=== PATIENT | female | born 2000 | race Caucasian/White ===

== ENCOUNTER 2023-01-23 17:53 | Outpatient (CLI) | payer OTHER, SELFPAY | END 2023-01-23 17:54 | disposition home or self-care (01) | PROVIDERS: Visit Provider Student in an Organized Health Care Education/Training Program | DX: R30.0 Dysuria (principal); N39.0 Urinary tract infection, site not specified | CPT/HCPCS: 87086; 87186 ==

== ENCOUNTER 2023-03-16 15:15 | Outpatient (CLI) | payer OTHER, SELFPAY ==
[2023-03-16 20:11] LABS: Chlamydia DNA Amplified* NOT DETECTED (No Detected); GC DNA Amplified* NOT DETECTED (No Detected)
== END 2023-03-16 15:16 | disposition home or self-care (01) ==
PROVIDERS: PCP Student in an Organized Health Care Education/Training Program; Visit Provider Obstetrics & Gynecology
DX: Z01.419 Encounter for gynecological examination (general) (routine) without abnormal findings (principal); E66.9 Obesity, unspecified; F41.1 Generalized anxiety disorder; N92.0 Excessive and frequent menstruation with regular cycle; E28.2 Polycystic ovarian syndrome
CPT/HCPCS: 0353U; 80061; 82627; 83498; 84270; 84402; 84403; 84443; 87491; 87591

== ENCOUNTER 2024-01-06 11:39 | Outpatient (CLI) | payer OTHER, SELFPAY | END 2024-01-06 11:40 | disposition home or self-care (01) | LOC: NFLDREF 01-08 07:36 | PROVIDERS: Visit Provider Physician Assistant | DX: R30.0 Dysuria (principal); N39.0 Urinary tract infection, site not specified | CPT/HCPCS: 87086; 87186 ==

== ENCOUNTER 2024-06-25 20:18 | Emergency (ER) | payer OTHER, SELFPAY ==
[2024-06-25 20:25] VITALS: BP 142/82; PULSE 89; RESP 20; TEMP 36.5; O2SAT 96; BMI 30.7
--- NOTE | 2024-06-25 20:36 | ED_ITS ---
HPI - Allergic Reaction General Time Seen by Provider: 20:36 Date Seen: 06/25/24 Chief complaint: Allergic Reaction Stated complaint: Hives Time Seen by Provider: 06/25/24 20:36 Source: patient, family, RN notes reviewed and old records reviewed Mode of arrival: ambulatory Limitations: no limitations History of Present Illness HPI narrative: Patient is a very pleasant 23-year-old female denies possibility of with no past history of allergies who comes to the emergency room with onset of hives on her leg abdomen neck approximately 1 hour ago. She has not had any new soaps foods and this has not happened to her in the past. The only thing that is different is that she did have a spray able essential oil that she applied to the recliner earlier today. Otherwise, she has not been swimming, use different soaps or lotions and she does not have a history of any food allergies. Patient denies difficulty with respirations or breathing has not had a cough, some stomachache or nausea. She notes that she feels a little bit of a tickle in her throat but denies tongue swelling lip swelling. She has otherwise been healthy with no recent illnesses or cough. She is not currently on any antibiotics or new medications. Patient agrees that these areas are very itchy and burning at times as well. Related Data Home Medications ?Medication ?Instructions ?Recorded ?Confirmed No Known Home Medications 06/25/24 06/25/24 Allergies Allergy/AdvReac Type Severity Reaction Status Date / Time sulfamethoxazole AdvReac Mild Dizziness Verified 06/25/24 20:25 [From Bactrim] trimethoprim [From Bactrim] AdvReac Mild Dizziness Verified 06/25/24 20:25 Review of Systems Status of ROS Reports: 10 or more systems reviewed and unremarkable except as noted in History and below Const Denies: fever or chills Eyes Denies: change in vision or eye discharge ENMT Denies: throat pain, neck pain, throat swelling, difficulty swallowing, hoarseness, swelling of lips/tongue or nasal congestion Cardio Denies: chest pain, palpitations, swelling of feet/ankles or shortness of breath with exertion Resp Denies: shortness of breath, cough, wheezing or stridor GI Denies: abdominal pain, nausea, vomiting or difficulty swallowing Denies: painful urination Musculo Denies: neck pain Integ/Breast Reports: rash, itching and redness; Denies: skin pain, skin tenderness or sores Neuro Denies: headache Allergy/Immuno Denies: throat swelling or wheezing PFSH PFS Medical History Obesity (BMI 30.0-34.9) ?E66.9 - Obesity, unspecified (ICD-10) Encounter for IUD insertion (03/16/23) ?Z30.430 - Encounter for insertion of intrauterine contraceptive device (ICD- 10) Hypermenorrhea ?N92.0 - Excessive and frequent menstruation with regular cycle (ICD-10) Chronic major depressive disorder, recurrent episode ?F33.9 - Major depressive disorder, recurrent, unspecified (ICD-10) Generalized anxiety disorder with panic attacks ?F41.1 - Generalized anxiety disorder (ICD-10) ?F41.0 - Panic disorder [episodic paroxysmal anxiety] (ICD-10) PCOS (polycystic ovarian syndrome) ?E28.2 - Polycystic ovarian syndrome (ICD-10) Surgical History No significant past surgical history Family History Maternal Grandfather Diabetes High blood pressure Maternal Grandmother Breast cancer, Onset Age: 65 Father Skin cancer Mother Anxiety Sister Anxiety Social History Narrative: Cis-gender, heterosexual woman. Relationship status: Monogamous relationship with a cis-man since 2018. Spouse/Partner: Edgar Education: Bachelor's degree Occupation: Alcohol and drug counselor Tobacco: Former smoker: Would smoke 1-5 cigarettes/week ?socially? E-cigarettes: No Alcohol: Yes. 0-2 servings/week Illicit/recreational drugs: No Safety concerns at home or work: No Dietary restriction(s): No Exercise: Yes, walking at least 30 minutes/day, 3 days per week. Smoking Status: Light tobacco smoker Little interest or pleasure in doing things: several days Feeling down, depressed, or hopeless: several days Exam Narrative: Exam Narrative: Patient is alert and oriented. She is not in any acute distress and breathing without difficulty. No evidence of swelling of the face mucous membranes. Her speech is normal. Her voice is normal. Neck is supple without lymphadenopathy. Heart with a regular rate and rhythm. Lungs are clear in all lung lyles. Abdomen soft. Examination of her of skin shows of on her leg multiple areas of raised erythematous areas not significantly warm to the touch. On her abdomen larger areas of erythema. One large hive on the right side of her abdomen appears to have some slight central clearing. This does not represent a bull's- eye rash. She also has of football shaped area of erythema on the left side of her abdomen on the small of her back and on the right side of her neck. Const: Vital Signs, click to edit/add: Vital Signs - 24 hr 06/25/24 20:25 Temperature 97.7 F Pulse Rate [Pulse Oximeter] 89 Respiratory Rate 20 Blood Pressure [Le ft Upper Arm] 142/82 H Pulse Oximetry 96 Oxygen Delivery Me thod Room Air Documenting provider has reviewed patient's vital signs: yes Course Course ED Course: At this time patient has evidence of an allergic reaction. With the exception of the essential oil that was sprayed on to the recliner, and currently at a loss to explain what she is reacting to. She is this is not happened to her in the past. No reports of new foods, soaps, lotions, antibiotics, medications. Patient will receive Benadryl 50 mg IM and prednisone 60 mg p.o.. She does tell me she had a glass of wine approximately an hour ago. Will bring her some water for hydration. Will monitor in the ED. Reevaluation(s) Reevaluation #1: Hives have faded in color on the leg but are still present. Will continue to monitor. Reevaluation #2: Hives continue to fade. Notably on torso. Resolution of ?tickling? in the throat. No respiratory distress. Vital Signs Vital signs: Initial Vital Signs Temperature 97.7 F 06/25/24 20:25 Temperature Source Temporal Artery Scan 06/25/24 20:25 Pulse Rate 89 06/25/24 20:25 Pulse Rhythm Regular 06/25/24 20:25 Pulse Strength 3+ Normal 06/25/24 20:25 Respiratory Rate 20 06/25/24 20:25 Blood Pressure 142/82 H 06/25/24 20:25 Blood Pressure Mean 102 06/25/24 20:25 Blood Pressure Position Sitting 06/25/24 20:25 Pulse Oximetry 96 07/27/24 20:25 Oxygen Delivery Method Room Air 06/25/24 20:25 Vital Signs Temperature 97.7 F 06/25/24 20:25 Pulse Rate 89 06/25/24 20:25 Respiratory Rate 06/25/24 20:25 Blood Pressure 142/82 H 06/25/24 20:25 Pulse Oximetry 96 06/25/24 20:25 Oxygen Delivery Method Room Air 06/25/24 20:25 Temperature 97.7 F 06/25/24 20:25 Pulse Rate 89 06/25/24 20:25 Respiratory Rate 20 06/25/24 20:25 Blood Pressure 142/82 H 06/25/24 20:25 Pulse Oximetry 96 06/25/24 20:25 Oxygen Delivery Method Room Air 06/25/24 20:25 Medications Administered Medications: Discontinued Medications Generic Name Dose Route Start Last Admin Trade Name Shahzadq PRN Reason Stop Dose Admin Diphenhydramine HCl 50 mg 06/25/24 20:36 06/25/24 20:43 Diphenhydramine 50 Mg/Ml Inj IM 06/25/24 20:37 50 mg ONCE ONE Administration Prednisone 60 mg 06/25/24 20:36 06/25/24 20:43 Prednisone 20 Mg Tablet PO 06/25/24 20:37 60 mg ONCE ONE Administration MDM - Allergic Reaction MDM Narrative Medical decision making narrative: 1. Allergic reaction-/unknown etiology. Predominantly skin rash. No swelling of the mucous membranes. Patient received Benadryl 50 mg I am as well as prednisone 60 mg p.o. improved symptoms at this time. Will allow patient to depart as she is feeling better. Recommend continuing antihistamines and prednisone. 2. Disposition-home at this time. Seek medical attention for worsening symptoms. At this time will continue Benadryl 50 mg every 6 hours last dose tomorrow evening. Alternatively she may use Zyrtec 10 mg every 12 hours last dose tomorrow night. Would continue prednisone 20 mg p.o. b.i.d. for the next 4 days. This will be sent to our [employer] machine. Seek medical attention for worsening symptoms. Would advise avoiding the essential oil. Monitor closely for any other new foods or he other possible causes of this allergic reaction. Medical Records Attestation: I reviewed the patient's medical records. Discharge Plan Discharge Clinical Impression: Allergic reaction Qualifiers: Encounter type: initial encounter Qualified Code(s): T78.40XA - Allergy, unspecified, initial encounter Patient Disposition: Home, Self-Care Condition: Improved Additional Instructions: Continue antihistamine for the next 24 hours. You may use Benadryl 50 mg every 6 hours as needed or Zyrtec 10 mg every 12 hours as needed. Your last dose of either should be tomorrow night. Prednisone is a steroid that we will continue for an additional 4 days. This sometimes can give insomnia or make people anxious. Other people just feel like they are energized and there are most people who do not even realize they are taking this medication. Return/seek medical attention for worsening symptoms especially difficulty swelling swelling of the mucous membranes. Prescriptions: No Action No Known Home Medications Follow Up/Referrals: Provider,Not a Local [Primary Care Provider] - Stand Alone Forms: [facility] Info Instructions
[2024-06-25] MEDS: predniSONE 20 MG TABLET 60 MG PO (20:43)
[2024-06-25] MEDS: diphenhydrAMINE 50 MG/ML inj IM (20:43)
== END 2024-06-25 21:49 | disposition home or self-care (01) ==
PROVIDERS: Emergency Provider Family Medicine
DX: L50.9 Urticaria, unspecified (principal); T78.40XA Allergy, unspecified, initial encounter
CPT/HCPCS: 96372; 99283; J1200; J7512

== ENCOUNTER 2024-06-27 19:31 | Emergency (ER) | payer OTHER, SELFPAY ==
[2024-06-27 19:36] VITALS: BP 142/81; PULSE 80; RESP 20; TEMP 36.7; O2SAT 99; BMI 30.7
[2024-06-27] MEDS: FAMOTIDINE 20 MG TABLET 40 MG PO (20:09)
--- NOTE | 2024-06-27 20:24 | ED.SKABFB ---
HPI - Skin/Abscess/Foreign Bdy General Date Seen: 06/27/24 Chief complaint: Skin/Abscess/Foreign Body Stated complaint: Hives on face/body Time Seen by Provider: 06/27/24 19:42 Source: patient Mode of arrival: ambulatory Limitations: no limitations History of Present Illness HPI narrative: Patient is a 23-year-old female presenting to the emergency department for a rash. She was here with this rash 2 days ago and was diagnosed with an allergic reaction that they felt likely was from a new essential oils she used. She was discharged with prednisone and Zyrtec. Last use the Zyrtec this morning. States the rash was improving up until about 18:15. That is when it suddenly got worse again. Is not taking any further antihistamines. Is still taking the prednisone. Denies chest pain, shortness of breath, headache, weakness, numbness, abdominal pain, diarrhea, constipation. States she otherwise feels asymptomatic other than her face was feeling a little tight. Cannot think of any other new things that may cause these symptoms. No history of allergies. Related Data Home Medications ?Medication ?Instructions ?Recorded ?Confirmed No Known Home Medications 06/25/24 06/27/24 Allergies Allergy/AdvReac Type Severity Reaction Status Date / Time sulfamethoxazole AdvReac Mild Dizziness Verified 06/27/24 19:39 [From Bactrim] trimethoprim [From Bactrim] AdvReac Mild Dizziness Verified 06/27/24 19:39 Review of Systems Status of ROS: Reports: 10 or more systems reviewed and unremarkable except as noted in History and below [facility] Medical History Obesity (BMI 30.0-34.9) ?E66.9 - Obesity, unspecified (ICD-10) Encounter for IUD insertion (03/16/23) ?Z30.430 - Encounter for insertion of intrauterine contraceptive device (ICD-10) Hypermenorrhea ?N92.0 - Excessive and frequent menstruation with regular cycle (ICD-10) Chronic major depressive disorder, recurrent episode ?F33.9 - Major depressive disorder, recurrent, unspecified (ICD-10) Generalized anxiety disorder with panic attacks ?F41.1 - Generalized anxiety disorder (ICD-10) ?F41.0 - Panic disorder [episodic paroxysmal anxiety] (ICD-10) PCOS (polycystic ovarian syndrome) ?E28.2 - Polycystic ovarian syndrome (ICD-10) Surgical History No significant past surgical history Family History Maternal Grandfather Diabetes High blood pressure Maternal Grandmother Breast cancer, Onset Age: 65 Father Skin cancer Mother Anxiety Sister Anxiety Social History Narrative: Cis-gender, heterosexual woman. Relationship status: Monogamous relationship with a cis-man since 2018. Spouse/Partner: Edgar Education: Bachelor's degree Occupation: Alcohol and drug counselor Tobacco: Former smoker: Would smoke 1-5 cigarettes/week ?socially? E-cigarettes: No Alcohol: Yes. 0-2 servings/week Illicit/recreational drugs: No Safety concerns at home or work: No Dietary restriction(s): No Exercise: Yes, walking at least 30 minutes/day, 3 days per week. Smoking Status: Light tobacco smoker Second hand tobacco smoke exposure: Yes How often do you have a drink containing alcohol: never AUDIT-C Alcohol total score: 0 Non-prescribed substance use: denies use Little interest or pleasure in doing things: several days Feeling down, depressed, or hopeless: several days Exam Narrative: Exam Narrative: Const: Well-nourished, Well-developed, in no distress Eyes: PERRL, no conjunctival injection, and symmetrical lids HENT: Atraumatic external nose and ears. Moist mucous membranes. Neck: Symmetric, trachea midline, No thyromegaly. CVS: RRR, No murmurs or gallops. Peripheral pulses 2+ and equal in all extremities RESP: Unlabored respiratory effort. Clear to auscultation bilaterally. GI: Nontender/Nondistended, No rebound or guarding. MSK:Extremities w/o deformity, Normal Active ROM Skin: Urticaria seen on face going onto neck and down both sides of her. Also seen on her legs. Neuro: Normal Muscle tone, No focal neurological deficits. Psych: Awake, Alert, & Oriented x3. Appropriate mood and affect. Const: Vital Signs, click to edit/add: Vital Signs - 24 hr 06/27/24 19:36 Temperature 98.0 F Pulse Rate [Right Pulse Oximeter] 80 Respiratory Rate 20 Blood Pressure [Ri ght Upper Arm] 142/81 H Pulse Oximetry 99 Oxygen Delivery Me thod Room Air Course Vital Signs Vital signs: Initial Vital Signs Temperature 98.0 F 06/27/24 19:36 Temperature Source Temporal Artery Scan 06/27/24 19:36 Pulse Rate 80 06/27/24 19:36 Respiratory Rate 20 06/27/24 19:36 Blood Pressure 142/81 H 06/27/24 19:36 Blood Pressure Mean 101 06/27/24 19:36 Blood Pressure Position Sitting 06/27/24 19:36 Pulse Oximetry 99 06/27/24 19:36 Oxygen Delivery Method Room Air 06/27/24 19:36 Vital Signs Temperature 98.0 F 06/27/24 19:36 Pulse Rate 80 06/27/24 19:36 Respiratory Rate 20 06/27/24 19:36 Blood Pressure 142/81 H 06/27/24 19:36 Pulse Oximetry 99 06/27/24 19:36 Oxygen Delivery Method Room Air 06/27/24 19:36 Temperature 98.0 F 06/27/24 19:36 Pulse Rate 80 06/27/24 19:36 Respiratory Rate 20 06/27/24 19:36 Blood Pressure 142/81 H 06/27/24 19:36 Pulse Oximetry 99 06/27/24 19:36 Oxygen Delivery Method Room Air 06/27/24 19:36 Medications Administered Medications: Generic Name Dose Route Start Last Admin Trade Name Freq PRN Reason Stop Dose Admin Famotidine 40 mg 06/28/24 09:00 06/27/24 20:09 Famotidine 20 Mg Tablet PO 40 mg DAILY SANYA Administration MDM - Skin/Abscess/Foreign Bdy MDM Narrative Medical decision making narrative: Patient is a 23-year-old female presenting for what appears to be hives. Will order some Pepcid. She is already on steroids and more is not required at this time. I spoke to them at length about the allergic reaction at this time with shared decision making was decided will do basic labs to make sure there is not anything else going on. Lab work Returned showing no concerning abnormalities. She is otherwise doing well at this time. Rash improved with the Pepcid. She will be discharged at this time Lab Data Labs: Lab Results 06/27/24 06/27/24 Range/Units 20:04 20:17 WBC 10.40 (4.50-11.00) K/uL RBC 4.42 (4.00-5.20) m/uL Hgb 13.4 (12.0-16.0) gm/dL Hct 41.6 (33.0-51.0) % MCV 94 (80-100) fL MCH 30 (26-34) pg MCHC 32 (32-36) gm/dL RDW Coeff of Erma 12.5 (11.5-15.5) % Plt Count 338 (140-440) K/uL Neut % (Auto) 75.2 H (42.0-72.0) % Lymph % (Auto) 20.9 (20-44) % [place] % (Auto) 3.7 (0.0-11.0) % Eos % (Auto) 0.0 (0.0-7.0) % Baso % (Auto) 0.1 (0.0-3.0) % Neut # (Auto) 7.80 H (1.7-7.0) K/uL Lymph # (Auto) 2.17 (0.90-2.90) K/uL [place] # (Auto) 0.40 (0.00-0.90) K/UL Eos # (Auto) 0.00 (0.00-0.50) K/uL Baso # (Auto) 0.01 (0.00-0.30) K/uL Abs Immat Gran (auto) 0.01 (0.00-0.30) K/uL Imm/Tot Granulo (auto) 0.1 % Sodium 140 (135-149) mmol/L Potassium 3.3 L (3.6-5.1) mmol/L Chloride 104 (96-114) mmol/L Carbon Dioxide 28 (20-32) mmol/L Anion Gap 8 (7-15) mEq/L BUN 11 (5-24) mg/dL Creatinine 0.6 (0.5-1.5) mg/dL Estimated Creat Clear 134.18 Estimated GFR 128 ml/min Glucose 126 H (60-115) mg/dL Calcium 9.6 (8.4-10.6) mg/dL Discharge Plan Discharge Clinical Impression: Allergic reaction Qualifiers: Encounter type: initial encounter Qualified Code(s): T78.40XA - Allergy, unspecified, initial encounter Patient Disposition: Home, Self-Care Condition: Improved Instructions: Allergy Testing (ED) Additional Instructions: You can continue to take Zyrtec and Pepcid for your hives. Finished the prednisone prescription previously prescribed. Return to the emergency department if you developed associated chest pain, shortness of breath, nausea, abdominal pain or any other concerning finding Prescriptions: No Action No Known Home Medications Follow Up/Referrals: Provider,Not a Local [Primary Care Provider] - Stand Alone Forms: [employer] Info Instructions
[2024-06-27 20:25] LABS: Basophils Absolute Auto 0.01 K/uL (0.00-0.30); Basophils Percent Auto 0.1 % (0.0-3.0); Hematocrit 41.6 % (33.0-51.0); Hemoglobin* 13.4 gm/dL (12.0-16.0); Immature Granulocytes Abs Auto 0.01 K/uL (0.00-0.30); Immature Granulocytes Pct Auto 0.1 %; Lymphocytes Absolute Auto 2.17 K/uL (0.90-2.90); Lymphocytes Percent Auto 20.9 % (20-44); Mean Corpuscular HGB Conc 32 gm/dL (32-36); Mean Corpuscular Hemoglobin 30 pg (26-34); Mean Corpuscular Volume 94 fL (80-100); Monocytes Percent Auto 3.7 % (0.0-11.0); Neutrophils Percent Auto 75.2 % (42.0-72.0); Platelet Count* 338 K/uL (140-440); RDW Coefficient of Variation % 12.5 % (11.5-15.5); Red Blood Count 4.42 m/uL (4.00-5.20)
[2024-06-27 20:30] LABS: Slide Review Reflex No
[2024-06-27 20:36] LABS: Chloride* 104 mmol/L (96-114)
[2024-06-27 20:37] LABS: Potassium* 3.3 mmol/L (3.6-5.1); Sodium* 140 mmol/L (135-149)
[2024-06-27 20:39] LABS: Creatinine* 0.6 mg/dL (0.5-1.5); Est. Creatinine Clearance* 134.18; Estimated Glomerular Filt Rate 128 ml/min
[2024-06-27 20:40] LABS: Anion Gap 8 mEq/L (7-15); Blood Urea Nitrogen* 11 mg/dL (5-24); Calcium* 9.6 mg/dL (8.4-10.6); Carbon Dioxide* 28 mmol/L (20-32); Glucose* 126 mg/dL (60-115)
[2024-06-27 21:06] VITALS: BP 135/74; PULSE 79; RESP 20; TEMP 36.7; O2SAT 99
[2024-06-27 21:19] VITALS: BP 135/74; PULSE 79; RESP 20; TEMP 36.7
== END 2024-06-27 21:20 | disposition home or self-care (01) ==
PROVIDERS: Emergency Provider Student in an Organized Health Care Education/Training Program
DX: L50.0 Allergic urticaria (principal)
CPT/HCPCS: 36415; 80048; 85025; 99282; 99283; A9270

== ENCOUNTER 2024-10-20 16:26 | Outpatient (CLI) | payer OTHER, SELFPAY | END 2024-10-20 16:27 | disposition home or self-care (01) | LOC: NFLDREF 10-23 06:17 | PROVIDERS: Visit Provider Physician Assistant | DX: R30.0 Dysuria (principal); N39.0 Urinary tract infection, site not specified | CPT/HCPCS: 87086 ==